=== PATIENT | male | born 1995 | race Caucasian/White ===

== ENCOUNTER 2020-10-14 00:10 | Emergency (ER) | payer MEDICAID ==
[~2020-10-14] VITALS: Ht 175.3 cm; Wt 99.8 kg
--- NOTE | 2020-10-14 00:15 | NUR ---
MARCO A RUBIN, PREBOOK. TAKEN TO CHAIR C
[2020-10-14 00:25] VITALS: BP 138/90
--- NOTE | 2020-10-14 00:53 | NUR ---
SEEN AND EXAMINED BY NAMITA.
[2020-10-14 01:25] VITALS: BP 138/90
--- NOTE | 2020-10-14 01:27 | NUR ---
Patient discharged with v/s stable. Written and verbal after care instructions given and explained. Patient verbalized understanding. Police with in custody. All questions addressed prior to discharge. Advised to follow up with PMD.
== END 2020-10-14 01:27 ==
LOC: EDBD 00:10 → MED 00:10
DX: Z02.89 Encounter for other administrative examinations (principal)
CPT/HCPCS: 99283